=== PATIENT | male | born 1980 | race Caucasian/White ===

== ENCOUNTER 2021-06-06 16:58 | Emergency (ER) | payer OTHER ==
[2021-06-06 18:00] LABS: BASOPHIL 0.7 % (0-2); EOSINOPHIL 2.6 % (0-5); HCT 50.7 % (42.0-52.0); HGB 16.8 g/dl (13.2-18.0); LYMPHOCYTE 25.2 % (15-48); MCH 30.1 pg (25.0-31.0); MCHC 33.1 g/dL (32.0-36.0); MCV 90.7 fL (78.0-100.0); MONOCYTE 10.6 % (0-12); MPV 9.4 fL (6.0-9.5); NEUTROPHIL 60.8 % (41-80); NRBC 0; PLT 212 K/uL (150-400); RBC 5.59 M/uL (4.70-6.00)
[2021-06-06 18:17] LABS: ALBUMIN 3.9 g/dL (3.4-5.0); BILIRUBIN - TOTAL 0.2 mg/dL (0.2-1.0); BUN/CREAT RATIO (CALC) 12.6 RATIO; CREATININE 1.19 mg/dL (0.67-1.17); GLOBULIN (CALCULATION) 3.5 g/dL; TOTAL PROTEIN 7.4 g/dL (6.4-8.2)
[2021-06-06 18:20] LABS: POTASSIUM 5.2 mmol/L (3.5-5.1)
[2021-06-06 19:37] LABS: BILIRUBIN NEGATIVE (NEGATIVE); BLOOD NEGATIVE Ery/uL (NEGATIVE); CLARITY CLEAR (CLEAR); COLOR YELLOW (YELLOW); GLUCOSE (U) NORMAL (NORMAL); LEUKOCYTES NEGATIVE Leu/uL (NEGATIVE); NITRITE NEGATIVE (NEGATIVE); PROTEIN NEGATIVE (NEGATIVE); SPECIFIC GRAVITY 1.025 (1.001-1.030)
[2021-06-09 00:06] LABS: CHLAMYDIA TRACHOMATIS, NAA Negative (Negative); NEISSERIA GONORRHOEAE, NAA Negative (Negative)
== END 2021-06-06 20:43 | disposition home or self-care (01) ==
LOC: FER 16:58
PROVIDERS: Nurse Practitioner Family
DX: R10.84 Generalized abdominal pain (principal); R11.0 Nausea; E86.0 Dehydration; E87.5 Hyperkalemia; J45.909 Unspecified asthma, uncomplicated; F17.210 Nicotine dependence, cigarettes, uncomplicated; Z88.0 Allergy status to penicillin
CPT/HCPCS: 36415; 80053; 81003; 84153; 85025; 87491; 87591; J7030; Q9967